=== PATIENT | male | born 1970 | race Caucasian/White ===

== ENCOUNTER 2018-06-26 00:15 | Outpatient (CLI) | payer BC, SELFPAY ==
--- NOTE | 2018-06-26 12:28 | MERGE_ITS ---
*[facility]* *[facility]* [address] [place] [address] Date of study: 06/26/2018 Transthoracic Echocardiography M-mode, complete 2D, complete spectral Doppler, and color Doppler *STUDY CONCLUSIONS* Summary: 1. Left ventricle: Wall thickness was at the upper limits of normal. Systolic function was normal. The estimated ejection fraction was 60-65%. 2. Left atrium: The atrium was mildly dilated. 3. Right ventricle: The cavity size was normal. Wall thickness was normal. Systolic function was normal. 4. Right atrium: The atrium was mildly dilated. 5. Pulmonary arteries: Pulmonary systolic pressure was at the upper limits of normal. PA peak pressure: 35mm Hg (S). *PATIENT PRESENTATION* Height: 167.6cm ((66in) ) S/D Pressure: 121 / 68 Weight: 93kg ((204.6lb) ) BSA: 2.12m^2 Test start time: 12:30 PM. Test stop time: 01:20 PM. PERFORMING Unknown PERFORMING [facility] ORDERING Carlota Menard REFERRING Carlota Menard VENUE MANAGER Charlene Hermosillo *PROCEDURE DATA* Procedure information: This study was interpreted by [facility]. Pertinent images and digital data are archived for permanent storage and are available for subsequent review. No prior study was available for comparison. Study status: Routine. Transthoracic echocardiography. M-mode, complete 2D, complete spectral Doppler, and color Doppler. A Transthoracic Echocardiogram was performed. Scanning was performed from the parasternal, apical, subcostal, and suprasternal notch acoustic windows. Images were obtained using an [id number] 2000 cardiac ultrasound machine. Study completion: The patient tolerated the procedure well. History: PMH: Palpitations. *CARDIAC ANATOMY* Left ventricle: Wall thickness was at the upper limits of normal. Systolic function was normal. The estimated ejection fraction was 60-65%. Aortic valve: Trileaflet; normal thickness leaflets. Mobility was not restricted. Doppler: Transvalvular velocity was within the normal range. There was no stenosis. There was no significant regurgitation. VTI ratio of LVOT to aortic valve: 0.79. Valve area (VTI): 2.9cm^2. Indexed valve area (VTI): 1.4cm^2/m^2. Peak velocity ratio of LVOT to aortic valve: 0.76. Valve area (Vmax): 2.8cm^2. Indexed valve area (Vmax): 1.3cm^2/m^2. Mean velocity ratio of LVOT to aortic valve: 0.66. Valve area (Vmean): 2.4cm^2. Indexed valve area (Vmean): 1.1cm^2/m^2. Mean gradient (S): 4.7mm Hg. Peak gradient (S): 8.8mm Hg. Mitral valve: Structurally normal valve. Mobility was not restricted. Doppler: Transvalvular velocity was within the normal range. There was no evidence for stenosis. There was no significant regurgitation. Valve area by pressure half-time: 3.7cm^2. Indexed valve area by pressure half-time: 1.7cm^2/m^2. Peak gradient (D): 3.1mm Hg. Left atrium: The atrium was mildly dilated. Right ventricle: The cavity size was normal. Wall thickness was normal. Systolic function was normal. Pulmonic valve: Poorly visualized. Doppler: There was mild regurgitation. Tricuspid valve: Doppler: There was trivial regurgitation. Pulmonary artery: Poorly visualized. Pulmonary systolic pressure was at the upper limits of normal. Right atrium: The atrium was mildly dilated. Systemic veins: Inferior vena cava: The vessel was normal in size. The respirophasic diameter changes were in the normal range (greater than or equal to 50%), consistent with normal central venous pressure. Measurements Left ventricle Value Reference LV ID, ED, PLAX 5.3 cm 3.5 - 6.0 LV ID, ES, PLAX 3.7 cm 2.1 - 4.0 LV PW thickness, ED, PLAX 1.0 cm LV end-diastolic volume, 1-p A2C 97 ml LV ejection fraction, 1-p A2C 76 % LV end-diastolic volume, 1-p A4C 104 ml LV ejection fraction, 1-p A4C 61 % LV e', lateral 0.126 m/sec LV E/e', lateral 7 LV e', medial 0.11 m/sec LV E/e', medial 8 LV e', average 0.118 m/sec LV E/e', average 8 Ventricular septum Value Reference IVS thickness, ED, PLAX 1.0 cm LVOT Value Reference LVOT ID, A-P 2.1 cm LVOT area 3.6 cm^2 LVOT peak velocity, S 1.12 m/sec LVOT mean velocity, S 0.67 m/sec LVOT VTI, S 25.0 cm LVOT peak gradient, S 5 mm Hg LVOT mean gradient, S 2.2 mm Hg Stroke volume (SV), LVOT DP 90 ml Stroke index (SV/bsa), LVOT DP 43 ml/m^2 Aortic valve Value Reference Aortic valve peak velocity, S 1.5 m/sec Aortic valve mean velocity, S 1.01 m/sec Aortic valve VTI, S 31.6 cm Aortic mean gradient, S 4.7 mm Hg Aortic peak gradient, S 8.8 mm Hg VTI ratio, LVOT/AV 0.79 Aortic valve area, VTI 2.9 cm^2 Velocity ratio, peak, LVOT/AV 0.76 Aortic valve area, peak velocity 2.8 cm^2 Velocity ratio, mean, LVOT/AV 0.66 Aortic valve area, mean velocity 2.4 cm^2 Aortic valve area/bsa, mean velocity 1.1 cm^2/m^2 Aorta Value Reference Aortic root ID, ED 3.1 cm Ascending aorta ID, A-P, S 3.3 cm Aortic root ID, ED, MM 3.1 cm 2.0 - 3.7 Left atrium Value Reference LA ID, A-P, ES 4.2 cm LA ID/bsa, A-P 2.0 cm/m^2 <=2.2 LA area, ES, A4C (H) 23.7 cm^2 8.8 - 23.4 LA area, ES, A2C 20 cm^2 LA volume/bsa, S 42 ml/m^2 LA volume, ES, 2-p 67 ml LA volume/bsa, ES, 2-p 32 ml/m^2 LA/aortic root ratio 1.37 Mitral valve Value Reference Mitral E-wave peak velocity 0.89 m/sec Mitral A-wave peak velocity 0.62 m/sec Mitral deceleration time 205 ms 150 - 230 Mitral pressure half-time 59 ms Mitral peak gradient, D 3.1 mm Hg Mitral E/A ratio, peak 1.42 Mitral valve area, PHT, DP 3.7 cm^2 Pulmonary arteries Value Reference PA pressure, S, DP (H) 35 mm Hg <=30 Tricuspid valve Value Reference Tricuspid regurg peak velocity 2.5 m/sec Tricuspid peak RV-RA gradient 24.8 mm Hg Right atrium Value Reference RA area, ES, A4C (H) 21.2 cm^2 8.3 - 19.5 RA volume, ES, A/L 64 ml RA volume/bsa, ES, A/L 30 ml/m^2 Systemic veins Value Reference Estimated CVP 10 mm Hg Right ventricle Value Reference RV pressure, S, DP (H) 35 mm Hg <=30 Legend: (L) and (H) zay values outside specified reference range. I have personally reviewed the images and have reviewed and edited the reported findings. Electronically signed by Tomy Barnett 06/26/2018 16:42
== END 2018-06-26 00:16 ==
PROVIDERS: PCP Nurse Practitioner; Visit Provider Nurse Practitioner
DX: R00.2 Palpitations (principal); I51.7 Cardiomegaly
CPT/HCPCS: 93306

== ENCOUNTER 2018-10-29 09:47 | Outpatient (REF) | payer BC, SELFPAY | END 2018-10-29 10:07 | LOC: NCHCN 09:47 | PROVIDERS: PCP Nurse Practitioner; Visit Provider Nurse Practitioner | DX: F41.9 Anxiety disorder, unspecified (principal); R00.2 Palpitations | CPT/HCPCS: 84443 ==

== ENCOUNTER 2019-02-17 16:05 | Outpatient (REF) | payer BC, SELFPAY ==
[2019-02-17 20:35] LABS: TSH (W/Ref FT4) 4.39 uIU/mL (0.358-3.74)
[2019-02-17 21:02] LABS: FREE T4 0.89 ng/dL (0.76-1.46)
== END 2019-02-17 16:25 ==
LOC: NCHCN 16:05
PROVIDERS: PCP Nurse Practitioner; Visit Provider Nurse Practitioner
DX: R00.2 Palpitations (principal)
CPT/HCPCS: 84439; 84443

== ENCOUNTER 2019-07-01 15:15 | Outpatient (REF) | payer BC, SELFPAY ==
[2019-07-01 22:38] LABS: TSH (W/Ref FT4) 2.36 uIU/mL (0.36-3.74)
== END 2019-07-01 15:35 ==
LOC: NCHCN 15:15
PROVIDERS: PCP Nurse Practitioner; Visit Provider Nurse Practitioner
DX: E03.9 Hypothyroidism, unspecified (principal)
CPT/HCPCS: 84443

== ENCOUNTER 2019-12-24 06:33 | Emergency (ER) | payer OTHER, SELFPAY ==
[2019-12-24] VITALS (63 sets, daily range): BP systolic 99–177; BP diastolic 59–102; PULSE 65–88; RESP 4–31; O2SAT 90–100
--- NOTE | 2019-12-24 06:42 | ED.GENADUL_ITS ---
Discharge Plan Disposition Patient Disposition: HOME Condition: Stable Discharge Details Chief Complaint: Chest Pain Clinical Impression: Shortness of breath, Carbon monoxide exposure Primary Care Provider: Carloat Menard ED Provider: Vamsi Garcia Home Meds and New Rx's Prescriptions: No Action levothyroxine 100 mcg Tablet 100 mcg PO DAILY RF: 0 Discharge Instructions Instructions: Carbon Monoxide Poisoning (ED), Smoke Inhalation (ED) Additional Instructions: Home to rest today. Followup with regular doctor in 5-7 days time for recheck. Return for any acute concerns. As per your request, laboratories from today's visit have been included below 12/24/19 12/24/19 12/24/19 06:45 06:45 06:45 WBC 5.82 RBC 4.68 Hgb 15.0 Hct 41.9 MCV 89.5 MCH 32.1 MCHC 35.8 RDW 12.4 Plt Count 276 MPV 8.8 Immature Gran % 0.5 Neutrophils % 44.4 Lymphocytes % 40.2 Monocytes % 11.3 Eosinophils % 3.3 Basophils % 0.3 Absolute Neutrophils 2.58 Absolute Lymphocytes 2.34 Absolute Monocytes 0.66 Absolute Eosinophils 0.19 Absolute Basophils 0.02 PT 10.3 INR 1.0 APTT 25.2 D-Dimer VBG pH VBG pCO2 VBG pO2 VBG HCO3 VBG Total CO2 VBG O2 Saturation VBG Base Excess Carboxyhemoglobin % Sodium 141 Potassium 4.1 Chloride 105 Carbon Dioxide 24.9 Anion Gap 11.1 H BUN 28 H Creatinine 1.31 H Estimated GFR/1.73 m2 57.69 Glucose 131 H Calcium 8.9 Magnesium 1.9 Total Bilirubin 0.3 AST 40 H ALT 97 H Alkaline Phosphatase 90 Troponin I < 0.05 NT-Pro-B Natriuret Pep 7 Total Protein 7.4 Albumin 4.0 Urine Color Urine Clarity Urine pH Ur Specific [place] Urine Protein Urine Ketones Urine Blood Urine Nitrite Urine Bilirubin Urine Urobilinogen Ur Leukocyte Esterase Urine Glucose 12/24/19 12/24/19 12/24/19 06:45 06:45 06:45 WBC RBC Hgb Hct MCV MCH MCHC RDW Plt Count MPV Immature Gran % Neutrophils % Lymphocytes % Monocytes % Eosinophils % Basophils % Absolute Neutrophils Absolute Lymphocytes Absolute Monocytes Absolute Eosinophils Absolute Basophils PT INR APTT D-Dimer 175 VBG pH 7.45 VBG pCO2 37 VBG pO2 72 H VBG HCO3 26 VBG Total CO2 22 VBG O2 Saturation 96 H VBG Base Excess 1.5 Carboxyhemoglobin % 1.3 Sodium Potassium Chloride Carbon Dioxide Anion Gap BUN Creatinine Estimated GFR/1.73 m2 Glucose Calcium Magnesium Total Bilirubin AST ALT Alkaline Phosphatase Troponin I NT-Pro-B Natriuret Pep Total Protein Albumin Urine Color Urine Clarity Urine pH Ur Specific [place] Urine Protein Urine Ketones Urine Blood Urine Nitrite Urine Bilirubin Urine Urobilinogen Ur Leukocyte Esterase Urine Glucose 12/24/19 12/24/19 12/24/19 08:35 08:39 09:59 WBC RBC Hgb Hct MCV MCH MCHC RDW Plt Count MPV Immature Gran % Neutrophils % Lymphocytes % Monocytes % Eosinophils % Basophils % Absolute Neutrophils Absolute Lymphocytes Absolute Monocytes Absolute Eosinophils Absolute Basophils PT INR APTT D-Dimer VBG pH VBG pCO2 VBG pO2 VBG HCO3 VBG Total CO2 VBG O2 Saturation VBG Base Excess Carboxyhemoglobin % Sodium Potassium Chloride Carbon Dioxide Anion Gap BUN Creatinine Estimated GFR/1.73 m2 Glucose Calcium Magnesium Total Bilirubin AST ALT Alkaline Phosphatase Troponin I < 0.05 Stand Alone Forms: Work Release Medical Decision Making <Song Middleton MD - Last Filed: 12/24/19 07:33> 49 yo male who denies chronic medical problems, no prior known coronary artery disease, nonsmoker who comes in with complaint of difficulty breathing. 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 Denies fevers or chest pressure, states it feels tight getting air into the chest. He is in no distress on exam speaking in full sentences, does have some mild wheezing at the apices bilaterally. He does note that his boss drove the same truck after him and noted some coughing after driving it, unsure if there were fumes he was exposed to. Has no pedal edema, no jvd. Given his exam findings could be having bronchospasm, will treat with nebs and steroids. Heart score is 2, will send troponin. Wells low but given age can't use perc to exclude PE so will send d dimer. Willobtain cxr to eval for infiltrate. labs unremarkable, some improvement in symptoms with neb and steroids but still has apical wheezing and intermittent cough will treat with another neb. Chest xray unremarkable. Will obtain delta troponin. Pt will be signed out to oncoming provider pending repeat troponin Differential Diagnosis Differential Diagnosis: pneumonia, bronchospasm, PE, nstemi Imaging Data Radiologic Study: Attestation: I personally reviewed and interpreted this imaging study as follows: Imaging: X-Ray My impression: no acute findings Lab Data Lab results reviewed: Yes I reviewed the patient's lab results. ECG Data Attestation: I personally reviewed and interpreted this ECG (s) as follows: Prior ECG tracings: not available for review Interpretation: sinus rhythm, rate of 68, pr 172, qtc 408, no acute st t wave ischemic findings <Vamsi Garcia MD - Last Filed: 12/24/19 13:12> Received signout from Dr. Middleton. Please see his note regarding details of the initial presentation, exam, laboratory analysis and plan of care. Patient did have some current shortness of breath, bedside carbon monoxide of 8, patient placed on oxygen. He is given 1 L fluid and observed. Repeat troponin obtained after approximately 4 hours observation and negative. Patient improved with administration of high flow oxygen, repeat bedside carbon oxide of 2. His work vehicle was noted to have exhaust leaks upon inspection. This is to be repaired. Patient stable and improved, appropriate for discharge to home. Lab Data Lab results reviewed: Yes I reviewed the patient's lab results. Labs: Laboratory Results - last 24 hr 12/24/19 12/24/19 12/24/19 06:45 06:45 06:45 WBC 5.82 RBC 4.68 Hgb 15.0 Hct 41.9 MCV 89.5 MCH 32.1 MCHC 35.8 RDW 12.4 Plt Count 276 MPV 8.8 Immature Gran % 0.5 Neutrophils % 44.4 Lymphocytes % 40.2 Monocytes % 11.3 Eosinophils % 3.3 Basophils % 0.3 Absolute Neutrophils 2.58 Absolute Lymphocytes 2.34 Absolute Monocytes 0.66 Absolute Eosinophils 0.19 Absolute Basophils 0.02 PT 10.3 INR 1.0 APTT 25.2 D-Dimer VBG pH VBG pCO2 VBG pO2 VBG HCO3 VBG Total CO2 VBG O2 Saturation VBG Base Excess Carboxyhemoglobin % Sodium 141 Potassium 4.1 Chloride 105 Carbon Dioxide 24.9 Anion Gap 11.1 H BUN 28 H Creatinine 1.31 H Estimated GFR/1.73 m2 57.69 Glucose 131 H Calcium 8.9 Magnesium 1.9 Total Bilirubin 0.3 AST 40 H ALT 97 H Alkaline Phosphatase 90 Troponin I < 0.05 NT-Pro-B Natriuret Pep 7 Total Protein 7.4 Albumin 4.0 Urine Color Urine Clarity Urine pH Ur Specific [place] Urine Protein Urine Ketones Urine Blood Urine Nitrite Urine Bilirubin Urine Urobilinogen Ur Leukocyte Esterase Urine Glucose 12/24/19 12/24/19 12/24/19 06:45 06:45 06:45 WBC RBC Hgb Hct MCV MCH MCHC RDW Plt Count MPV Immature Gran % Neutrophils % Lymphocytes % Monocytes % Eosinophils % Basophils % Absolute Neutrophils Absolute Lymphocytes Absolute Monocytes Absolute Eosinophils Absolute Basophils PT INR APTT D-Dimer 175 VBG pH 7.45 VBG pCO2 37 VBG pO2 72 H VBG HCO3 26 VBG Total CO2 22 VBG O2 Saturation 96 H VBG Base Excess 1.5 Carboxyhemoglobin % 1.3 Sodium Potassium Chloride Carbon Dioxide Anion Gap BUN Creatinine Estimated GFR/1.73 m2 Glucose Calcium Magnesium Total Bilirubin AST ALT Alkaline Phosphatase Troponin I NT-Pro-B Natriuret Pep Total Protein Albumin Urine Color Urine Clarity Urine pH Ur Specific [place] Urine Protein Urine Ketones Urine Blood Urine Nitrite Urine Bilirubin Urine Urobilinogen Ur Leukocyte Esterase Urine Glucose 12/24/19 12/24/19 12/24/19 08:35 08:39 09:59 WBC RBC Hgb Hct MCV MCH MCHC RDW Plt Count MPV Immature Gran % Neutrophils % Lymphocytes % Monocytes % Eosinophils % Basophils % Absolute Neutrophils Absolute Lymphocytes Absolute Monocytes Absolute Eosinophils Absolute Basophils PT INR APTT D-Dimer VBG pH VBG pCO2 VBG pO2 VBG HCO3 VBG Total CO2 VBG O2 Saturation VBG Base Excess Carboxyhemoglobin % Sodium Potassium Chloride Carbon Dioxide Anion Gap BUN Creatinine Estimated GFR/1.73 m2 Glucose Calcium Magnesium Total Bilirubin AST ALT Alkaline Phosphatase Troponin I < 0.05 NT-Pro-B Natriuret Pep Total Protein Albumin Urine Color Yellow Cancelled Urine Clarity Clear Cancelled Urine pH 7.0 Cancelled Ur Specific [place] 1.020 Cancelled Urine Protein Negative Cancelled Urine Ketones Negative Cancelled Urine Blood Negative Cancelled Urine Nitrite Negative Cancelled Urine Bilirubin Negative Cancelled Urine Urobilinogen 0.2 Cancelled Ur Leukocyte Esterase Negative Cancelled Urine Glucose Negative Cancelled ECG Data Attestation: I personally reviewed and interpreted this ECG (s) as follows: Interpretation: EKG #2 at 8:23 AM. Normal sinus rhythm, rate of 67, QRS is narrow, unremarkable intervals, nonspecific ST segment flattening in the lateral and inferior leads, similar to EKG from 6:44 AM. EKG #3 obtained at 10:06 AM. Normal sinus rhythm, rate of 77, no ST segment elevation, no significant change to the aforementioned nonspecific ST flattening. HPI <Song Middleton MD - Last Filed: 12/24/19 07:33> General Mode of arrival: ambulatory . Date/Time Provider Initiated Documentation: 12/24/19 06:33 . Limitations to Documentation: no limitations . Information obtained by: patient . History of Present Illness 49 year old M presents to the emergency department with the chief complaint of difficulty breathing, described as moderate, Patient started experiencing this hour(s) (2) and it has been constant. No relieving factors improve symptom(s), No exacerbating factors reported . Patient did receive the following treatments prior to arrival, none Related Data Home Medications Medication Instructions Recorded Confirmed levothyroxine 100 mcg PO DAILY 12/24/19 12/24/19 Allergies Allergy/AdvReac Type Severity Reaction Status Date / Time No Known Allergies Allergy Unverified 12/24/19 07:05 Review of Systems <Song Middleton MD - Last Filed: 12/24/19 07:33> All systems reviewed & are unremarkable except as noted in HPI and below Constitutional Constitutional: Denies chills, Denies fever(s) and Denies weakness Gastrointestinal Gastrointestinal: Denies abdominal pain, Denies nausea and Denies vomiting Musculoskeletal Musculoskeletal: Denies joint swelling Neurologic Neurologic: Denies weakness Endocrine Endocrine: Denies heat intolerance PFS <Song Middleton MD - Last Filed: 12/24/19 07:33> Medical History (Updated 12/24/19 @ 13:12 by Vamsi Garcia MD) Blindness of right eye Social History Smoking/Tobacco Use Status: Never Alcohol Intake: never Drug use: Never Exam <Song Middleton MD - Last Filed: 12/24/19 07:33> Const General: no acute distress Orientation: alert [facility] Head: normal to inspection Ears: external ears normal General nose exam: external nose normal Mouth: moist mucous membranes Eyes General: appearance normal, both eyes and all related structures Neck Neck: normal visual inspection Resp Effort & Inspection: normal respiratory effort and able to speak in complete sentences Cardio Rate: regular rate Skin General skin exam: no rashes or lesions noted Neuro General: alert and oriented x3 Extrem General: normal to inspection Psych Mental Status: mental status grossly normal Sign Out <Song Middleton MD - Last Filed: 12/24/19 07:33> Sign Out Data: Sign Out Comment: follow up on reassessment after nebs and repeat troponin Last updated by Song Middleton MD at 12/24/19 07:33
[2019-12-24] MEDS: methylPREDNISolone SUCC 125 MG VIAL IVP (06:52)
[2019-12-24] MEDS: Albuterol/Ipratropium 3 ML UPD VIAL UPD ×3 (06:56→09:56)
[2019-12-24 06:57] LABS: BE (Venous) 1.5 mmol/L (-3-3); HCO3 (Venous) 26 mmol/L (22-28); O2 Sat (Venous) 96 % (70-80); TCO2 (Venous) 22 mmol/L (22-29); pCO2 (Venous) 37 mm/Hg (34-47); pH (Venous) 7.45 (7.35-7.45); pO2 (Venous) 72 mm/Hg (28-44)
[2019-12-24 07:01] LABS: Abs Immature Grans 0.03 k/cumm (0.0-0.09); Absolute Basophil Count 0.02 k/cumm (0.0-0.2); Absolute Eosinophil Count 0.19 k/cumm (0.0-0.7); Absolute Lymphocyte Count 2.34 k/cumm (1.2-3.4); Absolute Monocyte Count 0.66 k/cumm (0.11-0.7); Absolute Neutrophil Count 2.58 k/cumm (1.2-6.7); Basophils % 0.3; Eosinophils % 3.3; HCT 41.9 % (40.0-50.0); Immature Grans % 0.5 %; Lymphocytes % 40.2; Mean Corp. HGB Concentration 35.8 g/dL (32.0-36.0); Mean Corpuscular Hemoglobin 32.1 pg (27.0-33.0); Mean Corpuscular Volume 89.5 fL (80-95); Mean Platelet Volume 8.8 fL (8.0-11.0); Monocytes % 11.3; Neutrophils % 44.4; Platelet Count 276 x1000/uL (130-400); RBC 4.68 m/cumm (4.50-6.00); RBC Distribution Width 12.4 % (11.8-14.1); White Blood Cell Count 5.82 k/cumm (4.4-10.8)
[2019-12-24 07:10] LABS: Carboxyhemoglobin 1.3 %
[2019-12-24 07:13] LABS: PTT Activated 25.2 sec (21.0-31.4); Prothrombin Time 10.3 sec (9.3-11.0)
--- NOTE | 2019-12-24 07:15 | DI.RAD_ITS ---
EXAM: XR PORTABLE CHEST AP CLINICAL HISTORY: shortness of breath TECHNIQUE: COMPARISON: No exams were available for comparison FINDINGS: Portable AP chest was obtained. Heart is not enlarged. Lungs are clear and well expanded. No pleur al effusion seen on this frontal film. IMPRESSION: No evidence of acute process.
[2019-12-24 07:22] LABS: ALT 97 U/L (16-63); AST 40 U/L (15-37); Alkaline Phosphatase 90 U/L (46-116); Anion Gap 11.1 mmol/L (3-11); BUN 28 mg/dL (7-18); Bilirubin, Total 0.3 mg/dL (0.2-1.0); CO2 24.9 mmol/L (21.0-32.0); CREATININE 1.31 mg/dL (0.70-1.30); Calcium 8.9 mg/dL (8.5-10.1); Chloride 105 mmol/L (98-107); Estimated GFR 57.69 (mL/min/1.73m2); Glucose 131 mg/dL (74-106); Magnesium 1.9 mg/dL (1.8-2.4); NT-proBNP 7 pg/mL (<300); Potassium 4.1 mmol/L (3.5-5.1); Sodium 141 mmol/L (136-145); Total Protein 7.4 g/dL (6.4-8.2); Troponin I < 0.05 ng/Ml (<0.06)
[2019-12-24 07:31] LABS: D-Dimer 175 ng/mlFEU (<500)
[2019-12-24] MEDS: Normal Saline 1,000 ML 1000 ML IV (08:27)
[2019-12-24 08:45] LABS: Bilirubin Negative (Negative); Blood Negative (Negative); Clarity Clear (Clear); Glucose Negative (Negative); Ketones Negative (Negative); Leukocyte Esterase Negative (Negative); Nitrite Negative (Negative); Urobilinogen 0.2 EU/dL (Up TO 0.2)
--- NOTE | 2019-12-24 09:17 | NUR.NOTE ---
PT had both nostrils cleaned with a moist cloth due to smelling the scent of something burner (smoke). Bacitracin was applied to both nostrils afterwards per Dr. Garcia
[2019-12-24 10:25] LABS: Troponin I < 0.05 ng/Ml (<0.06)
== END 2019-12-24 12:40 | disposition home or self-care (01) ==
PROVIDERS: Emergency Medicine; Emergency Provider Emergency Medicine; PCP Nurse Practitioner
DX: T58.01XA Toxic effect of carbon monoxide from motor vehicle exhaust, accidental (unintentional), initial encounter (principal); R06.02 Shortness of breath; R05 Cough; Y99.0 Civilian activity done for income or pay
CPT/HCPCS: 36415; 80053; 82375; 82805; 87449; 93005; 94640; 96361; 96374; 99285; 71045; 81003; 83735; 83880; 84484; 85025; 85379; 85610; 85730; 93010; 99284; J2930; J7620

== ENCOUNTER 2019-12-30 03:27 | Outpatient (CLI) | payer OTHER, BC, SELFPAY ==
[2019-12-30 13:06] LABS: HCO3 25 mmol/L (22-28); pCO2 40 mmHg (34-47); pH 7.41 (7.35-7.45); pO2 78 mmHg (83-108); sO2 96 % (94-98); tCO2 22 mmol/L (22-29)
[2019-12-30 13:09] LABS: FIO2 21 %; Site Left Radial
== END 2019-12-30 03:47 ==
PROVIDERS: PCP Nurse Practitioner; Visit Provider Nurse Practitioner Family
DX: T58.01XA Toxic effect of carbon monoxide from motor vehicle exhaust, accidental (unintentional), initial encounter (principal)
CPT/HCPCS: 82805; 36600

== ENCOUNTER 2020-06-08 10:07 | Outpatient (CLI) | payer BC, SELFPAY ==
--- NOTE | 2020-06-08 10:00 | DI.US_ITS ---
EXAM: US SCROTUM CLINICAL HISTORY: right scrotal swelling with pain,n50.89. TECHNIQUE: Scrotal ultrasound performed using grayscale, color-flow and spectral Doppler analysis. COMPARISON: No exams were available for comparison FINDINGS: Right testicle: 4.0 x 2.1 x 3.0 cm Echogenicity: Normal. Contour: Smooth. Mass: None seen. Microlithiasis: None. Hydrocele: Small hydrocele. Variocele: Yes Hernia: Right right-sided hernia identified extending into the scrotal sac. Epididymis: 0.6 x 0.4 x 0.5 cm epididymal head cyst. Left testicle: 3.4 x 1.9 x 2.9 cm Echogenicity: Normal. Contour: Smooth. Mass: None seen. Microlithiasis: None. Hydrocele: Small hydrocele. Variocele: None. Hernia: No peristalsing bowel loop identified. Epididymis: Normal. DOPPLER: Color: Symmetric and uniform, no hyperemia. Duplex: Bilateral testicular arterial waveforms visualized. IMPRESSION: Right-sided hernia extending into the scrotal sac. Right varicocele. DATA REPOSITORY:
== END 2020-06-08 10:27 ==
PROVIDERS: PCP Nurse Practitioner; Visit Provider Nurse Practitioner Gerontology
DX: K40.90 Unilateral inguinal hernia, without obstruction or gangrene, not specified as recurrent (principal); N50.89 Other specified disorders of the male genital organs; I86.1 Scrotal varices
CPT/HCPCS: 76870

== ENCOUNTER 2020-07-01 07:32 | Outpatient (CLI) | payer BC, SELFPAY ==
[2020-07-02 23:38] LABS: COVID-19 RT-PCR Result NEGATIVE (Negative)
== END 2020-07-01 07:52 ==
PROVIDERS: PCP Nurse Practitioner; Visit Provider Surgery
DX: Z01.818 Encounter for other preprocedural examination (principal)
CPT/HCPCS: U0003

== ENCOUNTER 2020-07-05 08:28 | Day surgery (SDC) | payer BC, SELFPAY ==
[2020-07-05] VITALS (11 sets, daily range): BP systolic 117–141; BP diastolic 64–83; PULSE 40–54; RESP 10–20; TEMP 36.1–36.2; O2SAT 95–99
--- NOTE | 2020-07-05 06:43 | W.PM.OP ---
Date of service: 07/05/20 Time of Service: 09:57 Operative Note Operative Note DATE OF PROCEDURE: 07/05/20 PRE-OP DIAGNOSIS: Right inguinal hernia and right hydrocele POST-OP DIAGNOSIS: other (Right Direct and Indirect inguinal hernia and right hydrocele) PROCEDURE: Right inguinal hernia repair with mesh right hydrocelectomy SURGEON: Chanelle Flowers YOUTH SERVICES SPECIALIST: [place] ANESTHESIA: GETA (ASA 2/ Param Delgado CRNA) and regional ESTIMATED BLOOD LOSS: 25 PATHOLOGY: none sent COMPLICATIONS: None Patient was transported to: PACU Patient's condition: stable Implants: [employer] LOT [id number] EXP 2020-12-14 Indications: Mr. Whaley is a pleasant 49-year-old gentleman who comes into the office today to discuss right inguinal hernia repair. He states that he has had this hernia for 10 to 15 years. His biggest complaint is swelling of his scrotum which is quite painful. He was seen by urology who ordered an ultrasound. Ultrasound showed a good sized right inguinal hernia with bowel within the scrotum. There were also small bilateral hydroceles. He tells me that the swelling in his scrotum goes up and down. He denies any changes in bowel habits. Findings: Moderate size direct hernia and large indirect hernia moderate size hydrocele Procedure Description: After informed concent was obtained the patient was taken to the operating room and placed in a supine position. Monitors and SCDs were applied and a timeout was done. The patient's name, date of , procedure type, procedure site, allergies to medications, preoperative antibiotic, and DVT prophylaxis were all reviewed. Fire risk was assessed. Next anesthesia did a tap block on the right side under ultrasound guidance. Please see their separate dictation. Once anesthesia was done the abdomen was prepped and draped in a sterile surgical fashion. The scrotum was also prepped with iodine. 1% lidocaine was injected into the dermis in the right lower quadrant. An incision was made with a 10 blade in the right lower quadrant. Dissection was done with cautery through the subcutaneous tissues and Jagruti's fascia down to the external oblique fascia. The external ring was identified and the external oblique fascia was opened sharply through the external ring. The cut fascia was grasped with hemostats the cord structures were identified and a Marlene drain was placed around them. The cremasteric muscle was dissected away from the cord structures using both cautery and blunt dissection. A hernia sac was identified and removed from the cord structures using blunt dissection. The hernia sac was suture ligated and amputated. The remnant was pushed back into the peritoneum. Next the right testicle was gently delivered into the hernia incision. A moderate sized hydrocele was identified. The hydrocele was opened sharply and the fluid was suctioned out. edges were then everted and sutured together. The testicle was inspected and was normal. There was no communication noted above the hydrocele. The testicle was placed back into the right scrotum. A small 1 cm incision was made in the scrotum. The testicle was then pexide with chromic suture to the scrotum. A marlene drain was then left in place and sutured with 2-0 nylon. The A 3 x 6 piece of mesh was then cut to size and attached to the lacunar ligament using a 2-0 Prolene double armed suture. The mesh was secured laterally and medially with a 2-0 Prolene, with a running suture. The tails of the mesh were wrapped around the cord structures effectively cinching down the internal ring. Once the mesh was secured the tissues were irrigated with some normal saline. No bleeding was identified. The external oblique fascia was re-approximated using 2-0 Vicryl running suture. The Jagruti's fascia was re-approximated using interrupted 3-0 Vicryl. The dermis was re-approximated with a running 4-0 Vicryl. The skin was cleaned and dried and skin affix was applied. The patient was woken up and taken back to recovery in stable condition. There were no immediate complications. Sponge, instrument and needle counts were correct at the end of the case x2.
--- NOTE | 2020-07-05 06:46 | W.PM.DSUDISC ---
Discharge Plan Disposition Patient Disposition: HOME Condition: Good Discharge Details Reason For Visit: Right inguinal hernia and hydrocele Attending Provider: Chanelle Flowers Primary Care Provider: Carlota Menard Home Meds and New Rx's Prescriptions: New oxycodone 5 mg tablet 5 mg PO Q6H PRNQty: 14 RF: 0 Continued levothyroxine 75 mcg capsule 75 mcg PO DAILY RF: 0 cholecalciferol (vitamin D3) 25 mcg (1,000 unit) capsule 25 mcg PO DAILY RF: 0 ibuprofen 800 mg tablet 800 mg PO TID PRNRF: 0 Discharge Instructions Instructions: Inguinal Hernia Repair (DC) Additional Instructions: Activity at Home after surgery: 1. Make sure you walk outside at least 4 times per day 2. You should be able to climb a flight of stairs 3. No driving while in pain or taking pain medications 4. No strenuous activity or heavy lifting for4 weeks Diet, Nutrition, & wound healin. Avoid alcohol until after you are recovered from your surgery 2. Make sure to eat plenty of lean protein (meat, fish, eggs, cottage cheese, beans) 3. Eat a variety of fruits and vegetables. Eat plenty of high fiber foods to avoid constipation. 4. Drink plenty of liquids to stay hydrated and avoid constipation Pain Medications: 1. Tylenol 650 mg as needed every 6 hours and Ibuprofen 600 mg every 6 hours as needed. May alternate between the 2 every 3 hours 2. If a narcotic has been prescribed take as directed only for breakthrough pain For Constipation: 1. Take Milk of Magnesia or MiraLax as needed for constipation Other: 1. You may shower daily. Do not scrub the incisions 2. Do not soak the incisions for 1 week 3. You may alternate ice and heat as needed for pain and swelling 4. Your scrotum will be swollen and bruised. Please use the scrotal support and place a dressing into it to catch the drainage Wound Care: 1. Keep the incisions clean and dry Other Services that may have been ordered: 0 Home Health- to help with dressing changes 0 Outpatient physical therapy Please call our office if you develop: 1. Fevers >101.5 2. Nausea or Vomiting 3. Worsening pain 4. Redness and thick discharge from the wounds If after hours please call the Hospital at and ask to speak to the on-call surgeon Referrals: Chanelle Flowers MD [ [facility] STAFF PHYSICIAN] - 07/18/20 10:00 am Activity:: Activity as Tolerated Diet:: As Tolerated Discharge Orders Discharge Orders: Discharge Order (Routine); Ordered 07/05/20 Ordered By: Chanelle Flowers
[2020-07-05] MEDS: Lactated Ringers 1,000 ML 80 ML IV (09:05)
[2020-07-05] MEDS: ceFAZolin 2 GM/50 ML BAG IVPB (09:31)
[2020-07-05] MEDS: Bupivacaine 0.25% Pres-Free 30 ML VIAL (09:40)
[2020-07-05] MEDS: Bupivacaine LIPOSOME/PF 133 MG/10 ML VIAL IJ (09:40)
[2020-07-05] MEDS: Bupivacaine 0.5% Pres-Free 30 ML VIAL (10:04)
[2020-07-05] MEDS: Lidocaine 1% Multi-Dose 50 ML VIAL (10:05)
[2020-07-05] MEDS: fentaNYL 100 MCG/2 ML VIAL IVP ×2 (12:03→12:13)
[2020-07-05] MEDS: HYDROmorphone 2 MG/ML VIAL IVP ×2 (12:33→12:46)
[2020-07-05] MEDS: traMADol 50 MG TAB PO (13:37)
== END 2020-07-05 15:10 | disposition home or self-care (01) ==
LOC: SUR 08:29
PROVIDERS: PCP Nurse Practitioner; Visit Provider Surgery
PROC: (CPT 49505; principal; 2020-07-05 09:45)
PROC: (CPT 49505; 2020-07-05 09:45)
DX: K40.90 Unilateral inguinal hernia, without obstruction or gangrene, not specified as recurrent (principal); N43.3 Hydrocele, unspecified; G89.18 Other acute postprocedural pain
CPT/HCPCS: 49505; 55040; 76942; C1781; J0690; J1100; J1885; J2250; J2405; J2704; J3010

== ENCOUNTER 2020-07-07 10:14 | Outpatient (CLI) | payer BC, SELFPAY ==
[2020-07-07 11:12] LABS: Bilirubin Negative (Negative); Blood Negative (Negative); Clarity Clear (Clear); Glucose Negative (Negative); Ketones Negative (Negative); Leukocyte Esterase Negative (Negative); Nitrite Negative (Negative); Specific Gravity 1.015 (1.005-1.025); Urobilinogen 0.2 EU/dL (Up TO 0.2)
== END 2020-07-07 10:34 ==
PROVIDERS: PCP Nurse Practitioner; Visit Provider Physical Therapy Assistant
DX: R30.0 Dysuria (principal)
CPT/HCPCS: 81003

== ENCOUNTER 2020-07-15 01:40 | Emergency (ER) | payer BC, SELFPAY ==
--- NOTE | 2020-07-15 01:43 | ED.GENADUL_ITS ---
Discharge Plan Disposition Patient Disposition: HOME Condition: Good Discharge Details Chief Complaint: Sorethroat Clinical Impression: Muscle spasms of neck Primary Care Provider: Carlota Menard ED Provider: Brandon Palm Meds and New Rx's Prescriptions: New cyclobenzaprine [cyclobenzaprine] 10 MG tablet 10 mg PO Q8H PRN PRN (Reason: Spasms) Qty: 10 RF: 0 Continued levothyroxine 75 mcg capsule 75 mcg PO DAILY RF: 0 cholecalciferol (vitamin D3) 25 mcg (1,000 unit) capsule 25 mcg PO DAILY RF: 0 ibuprofen 800 mg tablet 800 mg PO TID PRNRF: 0 tramadol 50 mg tablet 50 mg PO Q6H PRNQty: 14 RF: 0 Discharge Instructions Instructions: Muscle Spasm (ED) Additional Instructions: Continue using heat over the weekend. Take ibuprofen 3 times a day with food for the next few days. Try the cyclobenzaprine for muscle relaxation. Gentle stretching and massage may help. If continued problems follow-up with primary care or your chiropractor. Return to ED if you develop severe headache, neurologic changes, fever, difficulty breathing, inability to swallow, other concerns or problems. Referrals: Carlota Menard [Primary Care Provider] - Discharge Data Discharge Date/Time-TO BE ENTERED AT DEPARTURE: 07/15/20 02:10 Medical Decision Making Patient's posterior neck pain is clearly musculoskeletal in nature. He has quite limited range of motion because of discomfort caused at the insertion of the trapezius at the base of the skull down along both sides of the neck. He has no cervical spine tenderness and there is no trauma. He has mild sore throat but unremarkable oropharyngeal exam. He has a couple mild tender lymph nodes anterior neck. They are mobile. He reports they have been present for a little while. Thyroid is normal. Lungs are clear. Neuro exam is normal. In regards to the posterior neck pain we will have him continue heat, ibuprofen, gentle massage and stretching. Will start on Flexeril for muscle spasm. We will have him follow-up with primary care and/or his chiropractor next week. In regards to the mild sore throat there is no fever, URI type symptoms, oral pharyngeal pathology on exam. Lymph nodes that are present have been there according to patient. Would simply take observation course regarding the sore throat. Medical Records Medical records reviewed: Yes I reviewed the patient's medical records. HPI General Mode of arrival: ambulatory . Date/Time Provider Initiated Documentation: 07/15/20 01:41 . Limitations to Documentation: no limitations . Information obtained by: patient, RN notes reviewed and old records reviewed . HPI Narrative: Patient presents to ED with bilateral posterior neck pain for the last 3 days. There has been no trauma or injury. He has actually been taking it quite easy because he had recent right inguinal hernia repair. He has subsequently developed a slight sore throat. He denies having headache, fever, congestion, cough, shortness of breath. He has no numbness, tingling, paresthesias, weakness involving upper extremities. Ice did not help. If anything that made it worse. Heat did not make it worse but he did not notice a significant difference either. He was going to go to the chiropractor today but did not make it. He is having difficulty sleeping because of the discomfort. He has fairly significant difficulty turning his head left to right or front to back. Related Data Home Medications Medication Instructions Recorded Confirmed cholecalciferol (vitamin D3) 25 25 mcg PO DAILY 06/05/20 07/15/20 mcg (1,000 unit) capsule ibuprofen 800 mg tablet 800 mg PO TID PRN 06/05/20 07/15/20 levothyroxine 75 mcg capsule 75 mcg PO DAILY 06/05/20 07/15/20 tramadol 50 mg PO Q6H PRN #14 tab 07/05/20 07/15/20 cyclobenzaprine 10 mg PO Q8H PRN PRN #10 tab 07/15/20 Previous Rx's Medication Instructions Recorded tramadol 50 mg PO Q6H PRN #14 tab 07/05/20 cyclobenzaprine 10 mg PO Q8H PRN PRN #10 tab 07/15/20 Allergies Allergy/AdvReac Type Severity Reaction Status Date / Time oxycodone AdvReac Severe Nausea and Verified 07/15/20 01:49 vomiting General NICOLASA: 2 Review of Systems Narrative: As documented in HPI otherwise negative as below. Const: no fever, chills, weakness Resp: no cough, SOB, pleuritic pain CV: no CP, diaphoresis, edema, syncope GI: no abdominal pain, nausea, vomiting, diarrhea Neuro: no headache, numbness, focal weakness, confusion PFSH Medical History Blindness of right eye Bronchitis (Acute) Hx of fracture of leg (Acute) [place] Hardware present (L) Hx of fracture of tibia (Acute) L tib/fib w/[place] placed Impingement syndrome of right shoulder region (Acute ~10/2018) Palpitations (Acute ~05/2018) Pt. stated he was drinking too much caffeine, and cut back and palpatations stopped Sinusitis (Acute) Surgical History History of eye removal (Acute) S/P inguinal hernia repair using synthetic patch (Acute ~07/05/20) and right hydrocelectomy Social History Smoking/Tobacco Use Status: Never Alcohol Intake: current Alcohol Intake frequency: holidays/special occasions only Drug use: Never Substance use type: does not use Current gender identity: male Do you feel safe at home: Yes Do you feel safe in your relationship?: Yes Exam Narrative Exam Narrative: Vitals: Afebrile with normal vitals and normal room air pulse ox. Const: WDWN male in NAD. HEENT: NC/AT. Normal facial exam. TMs clear bilaterally. OP and posterior OP normal. No ulcers, edema, erythema, exudate. Eyes: Normal conjunctiva and sclera. Neck: Trachea midline. Decreased ROM due to pain along bilateral trapezius muscles/insertion sites on skull. No significant tenderness there. No midline tenderness. A couple of anterior lymph nodes that are slightly tender. Thyroid normal. Lungs: Normal respiratory effort. Lungs are clear. Neuro: A+O x 3. Normal speech, mentation, gait. Cranial nerves II - XII grossly intact. No gross motor or sensory deficit. Skin: Warm and dry without rash.
[2020-07-15 01:46] VITALS: BP 136/81; PULSE 60; RESP 16; TEMP 37.4; O2SAT 98
[2020-07-15] MEDS: Cyclobenzaprine 10 MG TAB PO (02:09)
== END 2020-07-15 02:10 | disposition home or self-care (01) ==
LOC: ER 02:07
PROVIDERS: Emergency Provider Emergency Medicine; PCP Nurse Practitioner
DX: M62.838 Other muscle spasm (principal); J02.9 Acute pharyngitis, unspecified
CPT/HCPCS: 99283

== ENCOUNTER 2020-08-24 00:25 | Outpatient (CLI) | payer BC, SELFPAY ==
--- NOTE | 2020-08-24 06:30 | DI.US_ITS ---
EXAM: US SCROTUM CLINICAL HISTORY: right scrotum pain, ? hematoma,s/p repair of hydrocele,z87.438 TECHNIQUE: Ultrasound performed using standard protocol. COMPARISON: US US OR ANESTHESIA from 07/05/2020 FINDINGS: Scrotal ultrasound was performed according to the usual protocol. Testes are unremarkable in echotex ture, size, and shape, there is normal vascular flow to the testes which is symmetrical bilaterally. Epididymi are unremarkable in appearance except for 6 millimeter spermatocele or cyst of the right ep ididymis. Normal flow to the epididymi on Doppler evaluation. There is mixed echogenicity mass inferior to the right testis corresponding to the patient's palpable abnormality. This measures about 24 x 20 x 17 millimeters and is avascular. The findings are most consistent with a scrotal hematoma. Other etiologies not entirely excluded, follow-up scan suggested in 3-6 months. IMPRESSION: Presumed right scrotal hematoma, follow-up examination suggested in 3-6 months to rule out other etio logies. DATA REPOSITORY:
== END 2020-08-24 00:45 ==
PROVIDERS: PCP Nurse Practitioner; Visit Provider Surgery
DX: N50.811 Right testicular pain (principal); Z87.438 Personal history of other diseases of male genital organs
CPT/HCPCS: 76870

== ENCOUNTER 2021-04-04 08:30 | Outpatient (REF) | payer BC, SELFPAY ==
[2021-04-04 16:19] LABS: Calculated LDL 214 mg/dL (<100); Cholesterol 298 mg/dL (<200); HDL Cholesterol 48 mg/dL (40-60); TSH (W/Ref FT4) 3.44 uIU/mL (0.36-3.74); Triglyceride 182 mg/dL (<150)
== END 2021-04-04 08:31 | disposition home or self-care (01) ==
LOC: NCHCN 08:30
PROVIDERS: PCP Nurse Practitioner; Visit Provider Nurse Practitioner
DX: Z00.00 Encounter for general adult medical examination without abnormal findings (principal); E03.9 Hypothyroidism, unspecified; Z13.220 Encounter for screening for lipoid disorders
CPT/HCPCS: 80061; 84443

== ENCOUNTER 2021-05-14 15:59 | Outpatient (REF) | payer BC, SELFPAY ==
[2021-05-14 20:49] LABS: Vitamin B12 509 pg/mL (193-986)
== END 2021-05-14 16:00 | disposition home or self-care (01) ==
LOC: NCHCN 15:59
PROVIDERS: PCP Nurse Practitioner; Visit Provider Nurse Practitioner
DX: R20.2 Paresthesia of skin (principal)
CPT/HCPCS: 82607

== ENCOUNTER 2021-07-30 16:41 | Outpatient (REF) | payer BC, SELFPAY ==
[2021-07-30 20:46] LABS: ALT 79 U/L (16-63); AST 30 U/L (15-37); Albumin 4.6 g/dL (3.4-5.0); Alkaline Phosphatase 96 U/L (46-116); Anion Gap 9.5 mmol/L (3-11); BUN 23 mg/dL (7-18); Bilirubin, Total 0.4 mg/dL (0.2-1.0); CO2 26.5 mmol/L (21.0-32.0); CREATININE 1.2 mg/dL (0.70-1.30); Calcium 9.5 mg/dL (8.5-10.1); Chloride 103 mmol/L (98-107); Glucose 97 mg/dL (74-106); Potassium 4.5 mmol/L (3.5-5.1); Sodium 139 mmol/L (136-145)
[2021-07-30 20:52] LABS: Hemoglobin A1C 5.7 % (<5.7)
== END 2021-07-30 16:42 | disposition home or self-care (01) ==
LOC: NCHCN 16:41
PROVIDERS: PCP Nurse Practitioner; Visit Provider Family Medicine
DX: M10.9 Gout, unspecified (principal); R73.9 Hyperglycemia, unspecified; R79.89 Other specified abnormal findings of blood chemistry
CPT/HCPCS: 80053; 83036; 84550

== ENCOUNTER 2022-01-25 03:31 | Outpatient (CLI) | payer BC, SELFPAY ==
[2022-01-25 12:46] LABS: Source Nasal/Nares
[2022-01-25 15:37] LABS: COVID-19 PCR Negative (Negative)
== END 2022-01-25 03:32 | disposition home or self-care (01) ==
LOC: LBO 03:31
PROVIDERS: Urology; PCP Nurse Practitioner; Visit Provider Nurse Practitioner Gerontology
DX: Z20.822 Contact with and (suspected) exposure to COVID-19 (principal); Z01.818 Encounter for other preprocedural examination
CPT/HCPCS: 87635

== ENCOUNTER 2022-01-28 06:13 | Day surgery (SDC) | payer BC, SELFPAY ==
[2022-01-28] VITALS (9 sets, daily range): BP systolic 99–137; BP diastolic 53–80; PULSE 54–61; RESP 16–19; TEMP 36.5–36.6; O2SAT 94–98; BMI 38.3
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
[2022-01-28] MEDS: Lactated Ringers 1,000 ML 80 ML IV (06:55)
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
[2022-01-28] MEDS: ceFAZolin 2 GM/50 ML BAG IVPB (07:42)
[2022-01-28] MEDS: Bupivacaine 0.25% Pres-Free 30 ML VIAL (08:10)
[2022-01-28] MEDS: Bacitracin 30 GM TUBE (08:10)
--- NOTE | 2022-01-28 08:30 | TES_PTH ---
PATIENT: Mike Whaley LOC: [facility] U#:[id number] AGE/SX: 51/M ROOM: RE01/28/[address]: Jose Hassan MD : [id number] BED: DIS: 01/28/2022 SPEC #: [id number] RECD: 01/28/22 12:44 STATUS: NIKUNJ RELelo #: [id number] HARRY: 01/28/22 08:[address]: Jose Hassan DEPT: Surgical Specimen RECD BY: Basia Cazares ENTERED: 01/28/22 12:46 SP TYPE: SUSHIL BELLA DR: Carlota Menard Tissues: 1 - TESTIS OTHER Procedures: GROSS AND MICRO LEVEL 4 Comments: [id number]
--- NOTE | 2022-01-28 08:35 | W.PM.DSUDISC ---
Discharge Plan Disposition Patient Disposition: HOME Condition: Stable Discharge Details Reason For Visit: spermatocelectomy Attending Provider: Jose Hassan Primary Care Provider: Carlota Menard Home Meds and New Rx's Prescriptions: New tramadol 50 mg tablet 50 mg PO Q6H PRN (Reason: pain) Qty: 30 0RF No Action omega 4-spj-qob-fish oil [Fish Oil] 300-1,000 mg capsule 1 cap PO DAILY 0RF levothyroxine 75 mcg capsule 75 mcg PO DAILY 0RF cholecalciferol (vitamin D3) 25 mcg (1,000 unit) capsule 25 mcg PO DAILY 0RF ibuprofen 800 mg tablet 800 mg PO TID PRN0RF atorvastatin 40 mg tablet 60 mg PO DAILY 0RF Discharge Instructions Additional Instructions: Scrotal support Ice pack to scrotum while awake - bag of frozen peas works well Followup appt 1 to 2 weeks may shower/bathe tomorrow and remove remove dressings when they are wet Activity:: no driving 1 week/off work until followup appt/no lifting over 10-20 pounds Remove Dressings/Wound Care:: 24 hours Shower/Bathe:: 24 hours Diet:: As Tolerated DS: Diagnosis Discharge Diagnosis (1) Scrotal pain: Status: Acute (2) Spermatocele: Status: Acute
--- NOTE | 2022-01-28 08:44 | W.PM.OP ---
Date of service: 01/28/22 Time of Service: 08:44 Operative Note Operative Note DATE OF PROCEDURE: 01/28/22 PRE-OP DIAGNOSIS: Right scrotal pain PROCEDURE: Partial right epididymectomy SURGEON: Jose Hassan Refer to Anesthesia Record ESTIMATED BLOOD LOSS: 25 PATHOLOGY: other (portion of right epididymis) COMPLICATIONS: None Patient was transported to: PACU Patient's condition: stable Implants: none Indications: This is a 51-year-old gentleman who had undergone a previous right inguinal hernia repair. The hydrocele was repaired at the same time. He developed a hematoma following the procedure. Hematoma is reabsorbed, but he has had persistent right scrotal and inguinal pain. On ultrasound, there is a cystic lesion in the right epididymis. The epididymis appears enlarged and inflamed with additional blood flow. He presents now for removal of the epididymal cyst Findings: dense scarring around head of epididymis Procedure Description: Patient was brought to the operating room on 01/28/2022. He was given a dose of preoperative IV antibiotics. After successful induction of general anesthesia, he was placed in the supine position. His genitalia was prepped and draped. A transverse right scrotal incision was performed. Incision was extended down through the subcutaneous fat and dartos muscle until the right testis was encountered. The testis and delivered into the incision and was dissected free from its surrounding tissue. The epididymis was identified and a plane was developed between the right epididymis and the testis. The epididymis was densely adherent to the testis and was quite firm. The enlarged area of the epididymis was then transected and the specimen was sent to pathology for permanent section. The transected area was cauterized using the Bovie. The testis was observed and appeared to have good blood flow with no dusky coloration. A cord block was performed using quarter percent Marcaine. The testis was delivered back within the right hemiscrotum. The dartos muscle was reapproximated using a running segment of 3-0 chromic. Skin was closed with simple interrupted 3-0 chromic. A fluff dressing and scrotal support were then applied to the wound. The patient tolerated this procedure well with no complications. Taken to the recovery room in stable condition
--- NOTE | 2022-01-28 09:59 | W.ANESPOSTOP ---
Postoperative Evaluation Date, Time and Location Date Performed: 01/28/22 Time Performed: 09:59 Patient Location: PACU Vital Signs Most Recent Imported Vital Signs: Most Recent Vital Signs Temp Pulse Resp BP Pulse Ox 36.5 C 59 L 16 126/78 98 01/28/22 09:45 01/28/22 09:45 01/28/22 09:45 01/28/22 09:45 01/28/22 09:45 Pain Score Most Recent Pain Score: Most Recent Pain Score Pain Level 2 01/28/22 09:45 Assessment Mental Status: Awake (Alert & Oriented to Patient Baseline) Airway and Respiratory Function: Patent airway with normal (patient baseline) respiratory exam Cardiovascular Function: Hemodynamically Stable Hydration Status: Adequately Hydrated Nausea & Vomiting: No Nausea or Vomiting Pain: Pt. Denies Any Pain Peripheral Nerve Block: Patient did not receive a nerve block
[2022-01-28] MEDS: traMADol 50 MG TAB PO (10:24)
== END 2022-01-28 11:10 | disposition home or self-care (01) ==
PROVIDERS: PCP Nurse Practitioner; Visit Provider Urology
PROC: (CPT 54840; principal; 2022-01-28 07:30)
DX: N50.82 Scrotal pain (principal); N43.40 Spermatocele of epididymis, unspecified; E03.9 Hypothyroidism, unspecified
CPT/HCPCS: 54860; 88305; J0690; J1100; J1885; J2250; J2405; J2704

== ENCOUNTER 2022-06-06 17:14 | Outpatient (REF) | payer BC, SELFPAY ==
[2022-06-06 15:06] LABS: Hemoglobin A1C 5.9 % (<5.7)
[2022-06-06 17:29] LABS: ALT 60 U/L (16-63); AST 27 U/L (15-37); Albumin 4.2 g/dL (3.4-5.0); Alkaline Phosphatase 85 U/L (46-116); Anion Gap 10.7 mmol/L (3-11); BUN 25 mg/dL (7-18); Bilirubin, Total 0.5 mg/dL (0.2-1.0); CO2 26.3 mmol/L (21.0-32.0); CREATININE 1.3 mg/dL (0.70-1.30); Calcium 9.3 mg/dL (8.5-10.1); Calculated LDL 93 mg/dL (<100); Chloride 103 mmol/L (98-107); Cholesterol 167 mg/dL (<200); Estimated GFR 57.75 (mL/min/1.73m2); Glucose 103 mg/dL (74-106); HDL Cholesterol 46 mg/dL (40-60); Potassium 4.9 mmol/L (3.5-5.1); Sodium 140 mmol/L (136-145); TSH 2.51 uIU/mL (0.36-3.74); Total Protein 7.4 g/dL (6.4-8.2); Triglyceride 141 mg/dL (<150)
[2022-06-06 22:40] LABS: PSA, Screening 0.2 ng/mL (<=3.5)
== END 2022-06-06 17:15 | disposition home or self-care (01) ==
LOC: NCHCN 17:14
PROVIDERS: PCP Nurse Practitioner; Visit Provider Physician Assistant
DX: E03.9 Hypothyroidism, unspecified (principal); Z12.5 Encounter for screening for malignant neoplasm of prostate; R73.9 Hyperglycemia, unspecified; E78.5 Hyperlipidemia, unspecified
CPT/HCPCS: 80053; 80061; 84153; 83036; 84443

== ENCOUNTER → 2022-09-27 00:53 | Outpatient (CLI) | payer BC, SELFPAY ==
--- NOTE | 2022-09-27 14:00 | DI.RAD_ITS ---
Exam(s) XR SHOULDER RT COMPLETE 2+V EXAM: XR SHOULDER RT COMPLETE 2+V CLINICAL HISTORY: RT SHOULDER PAIN, M25.511. TECHNIQUE: 2D digital imaging was performed. COMPARISON: CR XR SHOULDER LT COMPLETE 2+V from 09/27/2022 FINDINGS: Five views: There is no evidence of fracture or dislocation. Small 2 millimeter calcification noted in the subac romial space and there is an osteophytic ridge on the undersurface of the acromion, most probably cau sing an element of impingement upon the rotator cuff mechanism. In addition, there is significant de generative changes in the glenohumeral joint including some joint space narrowing as well as osteophy te on the inferior articular surface of the humeral head. Degenerative cysts noted in the lateral hu meral head. Some degenerative changes in the AC joint. IMPRESSION: Degenerative changes as well as small calcific density evident in subacromial space. Consistent with element of calcific tendinitis-bursitis. DATA REPOSITORY: RADIATION DOSE DELIVERED:
--- NOTE | 2022-09-27 14:00 | DI.RAD_ITS ---
Exam(s) XR SHOULDER LT COMPLETE 2+V EXAM: XR SHOULDER LT COMPLETE 2+V CLINICAL HISTORY: LT SHOULDER PAIN, M25.512. TECHNIQUE: 2D digital imaging was performed. COMPARISON: No exams were available for comparison FINDINGS: Five views: There is no evidence of fracture or dislocation. There is a calcification in the medial subacromial space just above the level of the osseous glenoid. Difficult to determine if this calcification is w ithin the labrum at this level (biceps attachment site to the anterosuperior labrum) or if it is an i ndependent calcification in the medial subacromial space. No osteophytes. Moderate degenerative erendira nges noted in the AC joint. Bone density normal. No osseous lesions. IMPRESSION: There is a 6 x 4 millimeter calcification in the medial subacromial space just above the osseous carlos oid, as discussed above. Only mild degenerative changes in the glenohumeral joint. DATA REPOSITORY: RADIATION DOSE DELIVERED:
== END ==
PROVIDERS: PCP Nurse Practitioner; Visit Provider Physician Assistant
DX: M19.011 Primary osteoarthritis, right shoulder (principal); M75.81 Other shoulder lesions, right shoulder
CPT/HCPCS: 73030

== ENCOUNTER 2022-10-22 04:26 | Emergency (ER) | payer BC, SELFPAY ==
[2022-10-22 04:31] VITALS: BP 152/98; PULSE 63; RESP 16; TEMP 36.6; O2SAT 97
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
[2022-10-22] MEDS: Lidocaine 5% Patch 1 PATCH TP (04:52)
[2022-10-22] MEDS: Cyclobenzaprine 10 MG TAB, 3 TABS/BTL PO (04:54)
== END 2022-10-22 05:18 | disposition home or self-care (01) ==
PROVIDERS: Emergency Provider Student in an Organized Health Care Education/Training Program; PCP Physician Assistant
DX: M54.2 Cervicalgia (principal)
CPT/HCPCS: 99283

== ENCOUNTER 2023-05-12 00:12 | Emergency (ER) | payer BC, SELFPAY ==
[2023-05-12 00:14] VITALS: BP 130/76; PULSE 79; RESP 16; TEMP 36.8; O2SAT 99
--- NOTE | 2023-05-12 00:15 | DI.CT_ITS ---
Exam(s) CT ABDOMEN PELVIS W EXAM: CT ABDOMEN PELVIS W CLINICAL HISTORY: right flank pain. ? kidney stones TECHNIQUE: Imaging Protocol: Axial computed tomography images with coronal and sagittal reformatted images were created and reviewed CONTRAST MATERIAL: Intravenous: Omnipaque 350 Contrast volume:100 mL Oral: None COMPARISON: No exams were available for comparison FINDINGS: ABDOMEN: Lung Bases: Normal where visualized. Liver: Normal density. No measurable mass. Portal, Superior Mesenteric, and Splenic Veins: Unremarkable. Gallbladder and Biliary Tract: No radiodense calculus or dilation. Pancreas: Normal density, no abnormal calcifications or inflammatory process. Spleen: Normal. Adrenals: No masses seen. Kidneys: Normal size, contour and axis. No radiodense stones or obstructive uropathy. No masses seen. Abdominal Aorta: Abdominal portion non-dilated. Bowel: No obstruction or bowel wall thickening. No evidence of appendicitis. There is a moderate gabriele unt of stool particularly in the right colon. Peritoneal Cavity: No ascites, collection or mesenteric inflammatory response. No free air. Lymph Nodes: Within normal limits. Bones: Within normal limits for the patient's age. Soft Tissues: There is a small fat containing umbilical hernia. There are findings suggestive of a p rior right inguinal hernia repair. There is a small fat containing left inguinal hernia. PELVIS: Bladder: Symmetric distention, no gross wall thickening. Reproductive Organs: Unremarkable as visualized. Lymph Nodes: Within normal limits. Bones: Within normal limits for the patient's age. IMPRESSION: 1. No evidence of nephrolithiasis or hydronephrosis. 2. Moderate amount of stool in the right colon which may represent constipation. RADIATION DOSE DELIVERED: 1,292.22mGy.cm Total DLP DATA REPOSITORY: All CT scans at this facility are submitted to the National Radiology Data Registry (NRDR) Dose Index Registry (DIR) with the [employer] (A[employer]). RADIATION OPTIMIZATION: All CT scans at this facility use at least one of these dose optimization te chniques: automated exposure control; mA and/or kV adjustment per patient size (includes targeted exa ms where dose is matched to clinical indication); or iterative reconstruction.
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
[2023-05-12] MEDS: Ondansetron 4 MG/2 ML VIAL IVP (00:41)
[2023-05-12] MEDS: Normal Saline 1,000 ML 1000 ML IV (00:41)
[2023-05-12] MEDS: Ketorolac 15 MG/ML VIAL IVP (00:41)
[2023-05-12 00:47] LABS: Abs Immature Grans 0.03 10^3/uL (0.0-0.06); Absolute Basophil Count 0.06 10^3/uL (0.0-0.2); Absolute Eosinophil Count 0.34 10^3/uL (0.0-0.7); Absolute Lymphocyte Count 3.69 10^3/uL (1.2-3.4); Absolute Monocyte Count 0.92 10^3/uL (0.1-0.8); Absolute Neutrophil Count 3.79 10^3/uL (1.2-6.7); Basophils % 0.7; Eosinophils % 3.9; HCT 42.1 % (40.0-50.0); HGB 14.9 g/dL (13.5-17.5); Immature Grans % 0.3; Lymphocytes % 41.8; MCHC 35.4 % (32.0-36.0); MCV 90 fL (80-95); MPV 8.9 fL (8.0-11.0); Monocytes % 10.4; Neutrophils % 42.9; Platelet Count 217 10^3/uL (130-400); RBC 4.66 10^6/uL (4.36-5.78); RDW 11.9 % (11.8-14.1); RDW-SD 39.4 fL; WBC 8.83 10^3/uL (4.4-10.8)
[2023-05-12] MEDS: Omnipaque 350 MG/ML 100 ML BTL IJ (00:59)
[2023-05-12 01:07] LABS: ALT 72 U/L (16-63); AST 30 U/L (15-37); Alkaline Phosphatase 115 U/L (46-116); Anion Gap 9.1 mmol/L (3-11); BUN 27 mg/dL (7-18); Bilirubin, Total 0.5 mg/dL (0.2-1.0); CO2 25.9 mmol/L (21.0-32.0); CREATININE 1.1 mg/dL (0.70-1.30); Calcium 8.8 mg/dL (8.5-10.1); Chloride 103 mmol/L (98-107); Estimated GFR 79.77 (mL/min/1.73m2); Glucose 111 mg/dL (74-106); Lipase 147 U/L (16-77); Magnesium 2.1 mg/dL (1.8-2.4); Potassium 4.4 mmol/L (3.5-5.1); Sodium 138 mmol/L (136-145); Total Protein 7.6 g/dL (6.4-8.2)
[2023-05-12] MEDS: Normal Saline Flush 10 ML SYR IVP (01:12)
[2023-05-12] MEDS: Normal Saline - Diluent 50 ML VIAL IJ (01:12)
--- NOTE | 2023-05-12 01:22 | DI.VRAD_ITS ---
PROCEDURE INFORMATION: Exam: CT Abdomen And Pelvis With Contrast Exam date and time: 05/12/2023 12:59 AM Age: 52 years old Clinical indication: Other: R flank pain; Prior surgery; Surgery date: 6+ months; Surgery type: Inguinal hernia repair TECHNIQUE: Imaging protocol: Computed tomography of the abdomen and pelvis with contrast. Radiation optimization: All CT scans at this facility use at least one of these dose optimization techniques: automated exposure control; mA and/or kV adjustment per patient size (includes targeted exams where dose is matched to clinical indication); or iterative reconstruction. Contrast material: OMNIPAQUE 350; Contrast volume: 100 ml; Contrast route: INTRAVENOUS (IV); COMPARISON: US SCROTUM 06/07/2021 9:08 AM FINDINGS: Liver: Hepatomegaly and diffuse fatty infiltration. No mass. Gallbladder and bile ducts: Normal. No calcified stones. No ductal dilation. Pancreas: Normal. No ductal dilation. Spleen: Normal. No splenomegaly. Adrenal glands: Normal. No mass. Kidneys and ureters: Normal. No hydronephrosis. Stomach and bowel: Semi-solid contents within the terminal ileum. Moderate stool in the colon No obstruction. No mucosal thickening. Appendix: No evidence of appendicitis. Intraperitoneal space: Unremarkable. No free air. No significant fluid collection. Vasculature: Unremarkable. No abdominal aortic aneurysm. Lymph nodes: Unremarkable. No enlarged lymph nodes. Urinary bladder: Unremarkable as visualized. Reproductive: Unremarkable as visualized. Bones/joints: Unremarkable. No acute fracture. Soft tissues: Unremarkable. IMPRESSION: No acute findings. Non-specific bowel gas pattern which may be related to mild stasis/constipation. Correlate clinically Dictated and Authenticated by: Adan Kirkpatrick MD. Ordering:SETH Newton MD
[2023-05-12] MEDS: Gabapentin 300 MG CAP PO (01:38)
[2023-05-12] MEDS: Cyclobenzaprine 10 MG TAB PO (01:38)
== END 2023-05-12 01:41 | disposition home or self-care (01) ==
PROVIDERS: Emergency Provider Student in an Organized Health Care Education/Training Program; PCP Physician Assistant
DX: M54.59 Other low back pain (principal); R10.11 Right upper quadrant pain
CPT/HCPCS: 36415; 80053; 83690; 96361; 96374; 96375; 99284; 74177; 83735; 85025; J1885; J2405; J3490

== ENCOUNTER 2023-05-23 15:18 | Outpatient (REF) | payer BC, SELFPAY ==
[2023-05-23 16:31] LABS: ALT 63 U/L (16-63); AST 31 U/L (15-37); Albumin 4.2 g/dL (3.4-5.0); Alkaline Phosphatase 111 U/L (46-116); BUN 20 mg/dL (7-18); Bilirubin, Total 0.6 mg/dL (0.2-1.0); CREATININE 1.1 mg/dL (0.70-1.30); Calcium 9.1 mg/dL (8.5-10.1); Calculated LDL 73 mg/dL (<100); Chloride 104 mmol/L (98-107); Cholesterol 157 mg/dL (<200); Estimated GFR 79.77 (mL/min/1.73m2); Glucose 96 mg/dL (74-106); HDL Cholesterol 47 mg/dL (40-60); Potassium 4.5 mmol/L (3.5-5.1); Sodium 140 mmol/L (136-145); TSH 2.21 uIU/mL (0.36-3.74); Total Protein 7.2 g/dL (6.4-8.2); Triglyceride 187 mg/dL (<150)
[2023-05-23 16:46] LABS: Hemoglobin A1C 5.3 % (<5.7)
[2023-05-26 09:51] LABS: PSA, Screening 0.2 ng/mL (<=3.5)
== END 2023-05-23 15:19 | disposition home or self-care (01) ==
LOC: NCHCN 15:18
PROVIDERS: PCP Physician Assistant; Visit Provider Physician Assistant
DX: Z12.5 Encounter for screening for malignant neoplasm of prostate (principal); R73.03 Prediabetes; E03.9 Hypothyroidism, unspecified; E78.5 Hyperlipidemia, unspecified
CPT/HCPCS: 80053; 80061; 84153; 83036; 84443

== ENCOUNTER → 2023-07-28 16:32 | Outpatient (CLI) | payer BC, SELFPAY ==
--- NOTE | 2023-07-28 | DI.RAD_ITS ---
Exam(s) XR KNEE RT 3V AP,LAT,WALDO EXAM: XR KNEE RT 3V AP,LAT,WALDO CLINICAL HISTORY: ACUTE RT KNEE APIN M25.561. TECHNIQUE: 2D digital imaging was performed. Three views. COMPARISON: No exams were available for comparison FINDINGS: BONES: No acute fracture is present. No bony destructive lesion is seen. Tiny enthesophyte at quadric eps insertion on patella. JOINTS: The knee is normally aligned. No joint effusion is seen. Joint spaces are maintained. Mini mal periarticular spurring. SOFT TISSUE: Normal. IMPRESSION: Minimal degenerative changes. DATA REPOSITORY: RADIATION DOSE DELIVERED:
== END ==
PROVIDERS: PCP Physician Assistant; Visit Provider Nurse Practitioner Family
DX: M17.11 Unilateral primary osteoarthritis, right knee (principal)
CPT/HCPCS: 73562

== ENCOUNTER → 2024-05-21 19:43 | Outpatient (CLI) | payer BC, SELFPAY ==
--- NOTE | 2024-05-21 13:16 | DI.RAD_ITS ---
Exam(s) XR ANKLE LT COMPLETE EXAM: XR ANKLE LT COMPLETE CLINICAL HISTORY: PAIN LEFT ANKLE AND JOINTS OF FOOT M25.572. TECHNIQUE: 2D digital imaging was performed. COMPARISON: CR LEFT ANKLE COMPLETE from 07/22/2017 FINDINGS: 3 views Again noted is a long threaded screw in the distal fibula. No evidence of hardware loosening nor jacqueline dence of osteomyelitis. Findings in the distal tibia probably reflect presence of prior hardware at this location also. There are significant osteoarthritic degenerative changes in the tibiotalar join t. Small osteophytic density anteriorly. Appearance of the anterior aspect of the tibiotalar joint may reflect impingement syndrome. There are no osteochondral defects nor obvious degenerative subart icular cyst in the talar dome. Less joint space narrowing laterally. There is enthesophyte on the posterior aspect of the calcaneus -Achilles insertion site. IMPRESSION: Previous surgery. Significant degenerative changes in the tibiotalar joint. DATA REPOSITORY: RADIATION DOSE DELIVERED:
--- NOTE | 2024-05-21 13:16 | DI.RAD_ITS ---
Exam(s) XR FOOT LT COMPLETE EXAM: XR FOOT LT COMPLETE CLINICAL HISTORY: PAIN LEFT ANKLE AND JOINTS OF FOOT M25.572. TECHNIQUE: 2D digital imaging was performed. COMPARISON: No exams were available for comparison FINDINGS: 3 views Long threaded screw noted in the distal fibula. No evidence of acute fracture in the foot nor diastasis of the Lisfranc joint. Moderate degenerative changes are noted in the great toe metatarsophalangeal joint. Other MTP joints appear unremarkable as do the tarsometatarsal joints and other midfoot joints. There is no pes planus. Advanced degener ative changes in the ankle-tibiotalar joint are noted. Subtalar joint appears unremarkable. Entheso phyte is noted posteriorly at the Achilles insertion. Tiny inferior calcaneal spur noted. IMPRESSION: As above. DATA REPOSITORY: RADIATION DOSE DELIVERED:
== END ==
PROVIDERS: PCP Physician Assistant; Visit Provider Physician Assistant Medical
DX: M25.572 Pain in left ankle and joints of left foot (principal)
CPT/HCPCS: 73610; 73630

== ENCOUNTER 2024-07-14 09:31 | Outpatient (REF) | payer BC, SELFPAY ==
[2024-07-14 14:58] LABS: Hemoglobin A1C 5.5 % (<5.7)
[2024-07-14 15:09] LABS: ALT 78 U/L (16-63); AST 30 U/L (15-37); Albumin 4.2 g/dL (3.4-5.0); Alkaline Phosphatase 96 U/L (46-116); Anion Gap 7.5 mmol/L (3-11); BUN 21 mg/dL (7-18); Bilirubin, Total 0.69 mg/dL (0.2-1.0); CO2 25.5 mmol/L (21.0-32.0); CREATININE 1.1 mg/dL (0.70-1.30); Calcium 9.5 mg/dL (8.5-10.1); Calculated LDL 85 mg/dL (<100); Chloride 105 mmol/L (98-107); Cholesterol 159 mg/dL (<200); Estimated GFR 79.28 (mL/min/1.73m2); Glucose 93 mg/dL (74-106); HDL Cholesterol 47 mg/dL (40-60); Potassium 4.6 mmol/L (3.5-5.1); Sodium 138 mmol/L (136-145); TSH 1.95 uIU/Ml (0.36-3.74); Total Protein 7.4 g/dL (6.4-8.2); Triglyceride 139 mg/dL (<150)
[2024-07-15 23:07] LABS: PSA, Screening 0.3 ng/mL (<=3.5)
== END 2024-07-14 09:32 | disposition home or self-care (01) ==
LOC: NCHCN 09:31
PROVIDERS: PCP Physician Assistant; Visit Provider Physician Assistant
DX: E78.5 Hyperlipidemia, unspecified (principal); E03.9 Hypothyroidism, unspecified; R73.03 Prediabetes; Z12.5 Encounter for screening for malignant neoplasm of prostate
CPT/HCPCS: 80053; 80061; 84153; 83036; 84443

== ENCOUNTER 2025-02-08 12:58 | Outpatient (CLI) | payer BC, SELFPAY ==
--- NOTE | 2025-02-08 | DI.RAD_ITS ---
Exam(s) XR KNEE RT 3V AP,LAT,WALDO EXAM: XR KNEE RT 3V AP,LAT,WALDO CLINICAL HISTORY: Pain in rt knee, M25.561, no trauma. TECHNIQUE: 2D digital imaging was performed. COMPARISON: CR XR KNEE RT 3V AP,LAT,WALDO from 07/28/2023 FINDINGS: 3 views No evidence fractures nor prominent joint effusion. Mild degenerative changes noted. Bone density n ormal. No osseous lesions. A notch in the superolateral aspect of the patella is unchanged. Bone density is normal. No osseous lesions. IMPRESSION: No acute osseous findings in the right knee. DATA REPOSITORY: RADIATION DOSE DELIVERED:
== END 2025-02-08 13:18 ==
LOC: DI 12:59
PROVIDERS: PCP Physician Assistant; Visit Provider Physician Assistant
DX: M25.561 Pain in right knee (principal)
CPT/HCPCS: 73562

== ENCOUNTER 2025-02-09 15:48 | Emergency (ER) | payer BC, SELFPAY ==
--- NOTE | 2025-02-09 15:45 | DI.RAD_ITS ---
Exam(s) XR KNEE RT 3V AP,LAT,WALDO EXAM: XR KNEE RT 3V AP,LAT,WALDO CLINICAL HISTORY: pain. TECHNIQUE: 2D digital imaging was performed. COMPARISON: CR XR KNEE RT 3V AP,LAT,WALDO from 02/08/2025 FINDINGS: 3 views No evidence of fracture or prominent joint effusion. Mild degenerative changes are noted. There is an enthesophyte at the insertional aspect of the quadr iceps tendon on the anterosuperior aspect of the patella. IMPRESSION: Mild degenerative changes. No acute osseous findings. DATA REPOSITORY: RADIATION DOSE DELIVERED:
[2025-02-09 15:50] VITALS: BP 160/107; PULSE 65; RESP 20; TEMP 37; O2SAT 98
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
--- NOTE | 2025-02-09 16:35 | DI.VRAD_ITS ---
PROCEDURE INFORMATION: Exam: XR Right Knee Exam date and time: 02/09/2025 4:05 PM Age: 54 years old Clinical indication: Pain; Knee; Right TECHNIQUE: Imaging protocol: Radiologic exam of the right knee. Views: 3 views. COMPARISON: CR XR KNEE RT 3V AP,LAT,WALDO 02/08/2025 12:56 PM FINDINGS: Bones/joints: There is mild narrowing of the medial femoral tibial joint compartment. There is narrowing of the patellofemoral compartment. There are marginal osteophytes present. There is a small suprapatellar joint effusion present. There is mild soft tissue swelling present. There are enthesopathic changes seen at the patella. Soft tissues: Mild soft tissue swelling present. IMPRESSION: 3 compartmental mild degenerative changes of the right knee with joint effusion and soft tissue swelling. Dictated and Authenticated by: Galo Traore MD. Orderin Rohan Brantley MD
--- NOTE | 2025-02-10 16:43 | W.EDPROG ---
Date of service: 02/10/25 Time of Service: 16:43 Medical Decision Making Patient called the ED after being seen last night when he had an x-ray performed of his knee which showed no acute osseous abnormalities. He requested a work note. There is a work note in the patient's chart already. Quality:SDOH Health Related Social Needs: No Data to Display Discharge Plan Disposition Patient Disposition: Home Condition: Stable Discharge Details Clinical Impression: Internal derangement of right knee Primary Care Provider: Michael Quispe ED Provider: Karon Madrigal Home Meds and New Rx's Prescriptions: No Action atorvastatin 40 mg tablet 80 mg PO DAILY nystatin 100,000 unit/gram powder 1 applic topical BID Ozempic 2 mg/dose (8 mg/3 mL) pen injector 2 mg subcut QWEEK gabapentin 100 mg capsule 200 mg PO TID Rx Instructions: may increase from 1 pill three times a day up to three pills three times a day over the next month omega 0-abu-ecd-fish oil [Fish Oil] 300-1,000 mg capsule 1 cap PO DAILY levothyroxine 75 mcg capsule 75 mcg PO DAILY cholecalciferol (vitamin D3) 25 mcg (1,000 unit) capsule 25 mcg PO DAILY ibuprofen 800 mg tablet 800 mg PO DAILY Discharge Instructions Instructions: Internal Derangement of the Knee Additional Instructions: You were placed on a follow up care management list to get you an appointment with Orthopedics. You may need an further imaging if they determine that is necessary. Rest, Ice, Elevate and wear the brace as previously directed. Please take Tylenol or Ibuprofen with food every 4-6 hours as needed for pain and swelling. Stand Alone Forms: Work Release Referrals: Cory Harrell MD [ [facility] STAFF PHYSICIAN] - 2 weeks Discharge Data Discharge Date/Time-TO BE ENTERED AT DEPARTURE: 02/09/25 17:38
== END 2025-02-09 17:38 | disposition home or self-care (01) ==
PROVIDERS: Emergency Provider Registered Nurse Emergency; PCP Physician Assistant
DX: M25.561 Pain in right knee (principal); M23.91 Unspecified internal derangement of right knee; Z79.899 Other long term (current) drug therapy
CPT/HCPCS: 00123; 73562; 99283

== ENCOUNTER 2025-02-24 01:05 | Outpatient (CLI) | payer BC, SELFPAY ==
--- NOTE | 2025-02-24 | DI.MRI_ITS ---
Exam(s) MR LOWER JOINT RT WO EXAM: MR LOWER JOINT RT WO CLINICAL HISTORY: Instability of rt knee joint, M25.361; pain of rt knee. TECHNIQUE: Multiplanar multisequence MRI was performed. COMPARISON: CR XR KNEE RT 3V AP,LAT,WALDO from 02/08/2025 CR,XR XR KNEE RT 3V AP,LAT,WALDO from 02/09/2025 FINDINGS: BONES: There is no fracture or contusion pattern. Small spurring anterior tibia, anterior to ACL. JOINTS: A small joint effusion is present. Articular cartilage: Patellofemoral joint: Articular cartilage is unremarkable. Medial femoral tibial joint: Articular mild cartilage thinning. No focal defects. Lateral femoral tibial joint: Articular cartilage is unremarkable. LIGAMENTS/TENDONS: Anterior Cruciate: Unremarkable. Posterior Cruciate: Unremarkable. Medial Collateral:Fluid around the medial collateral ligament but no visible tear. Lateral Collateral ligament complex: Unremarkable. Extensor mechanism: enthesophyte at superior pole of patella. Medial retinaculum: Lateral retinaculum: Unremarkable. Popliteus: Unremarkable. MENISCI: The medial meniscus shows mild intrasubstance signal but no focal tear. The lateral meniscus is unremarkable. MUSCLES: Unremarkable. SOFT TISSUES: Mild anterior soft tissue edema. roughly 4.5 cm in length bilobed popliteal cyst. IMPRESSION: Fluid around the medial collateral ligament but no visible tear. Bilobed Rivas cyst. Degenerative intrasubstance signal in the medial meniscus. DATA REPOSITORY:
== END 2025-02-24 01:25 ==
LOC: DI 01:05
PROVIDERS: PCP Physician Assistant; Visit Provider Physician Assistant
DX: M25.361 Other instability, right knee (principal); M71.21 Synovial cyst of popliteal space [Baker], right knee
CPT/HCPCS: 73721

== ENCOUNTER 2025-07-04 19:16 | Outpatient (REF) | payer BC, SELFPAY ==
[2025-07-04 17:41] LABS: Hemoglobin A1C 5.5 % (<5.7)
[2025-07-04 18:14] LABS: ALT 52 U/L (16-63); AST 28 U/L (15-37); Albumin 4.5 g/dL (3.4-5.0); Alkaline Phosphatase 106 U/L (46-116); Anion Gap 10.3 mmol/L (3-11); BUN 27 mg/dL (7-18); Bilirubin, Total 0.5 mg/dL (0.2-1.0); CO2 27.7 mmol/L (21.0-32.0); Calcium 9.4 mg/dL (8.5-10.1); Calculated LDL 105 mg/dL (<100); Chloride 102 mmol/L (98-107); Cholesterol 189 mg/dL (<200); Estimated GFR 88.33 (mL/min/1.73m2); Glucose 94 mg/dL (74-106); HDL Cholesterol 52 mg/dL (>or=40); Potassium 4.7 mmol/L (3.5-5.1); Sodium 140 mmol/L (136-145); TSH 3.48 uIU/mL (0.36-3.74); Total Protein 7.8 g/dL (6.4-8.2); Triglyceride 162 mg/dL (<150)
== END 2025-07-04 19:17 | disposition home or self-care (01) ==
LOC: NCHCN 19:16
PROVIDERS: PCP Physician Assistant; Visit Provider Physician Assistant
DX: R73.03 Prediabetes (principal); E78.5 Hyperlipidemia, unspecified; E03.9 Hypothyroidism, unspecified
CPT/HCPCS: 80053; 80061; 83036; 84443